=== PATIENT | female | born 1960 | race African-American/Black ===

== ENCOUNTER 2016-06-01 10:49 | Emergency (ER) | payer OTHER ==
[~2016-06-01] VITALS: Wt 112.0 kg
[~2016-06-01 10:49] MED LIST: ALBU8.5H3 INH; BENA1TAB13 PO; HYD25 PO; METF1000 PO
[2016-06-01] MEDS ORDERED: ALBUTEROL 0.5% (NEB) 2.5 MG/0.5 ML AMP NEB STA (11:55)
[2016-06-01] MEDS ORDERED: IPRATROPIUM (NEB) 0.5 MG/2.5 ML AMP NEB STA (11:55)
[2016-06-01] MEDS ORDERED: ALBU2.5V3 NEB (12:11)
[2016-06-01] MEDS ORDERED: PROM25TA14 PO (12:11)
[2016-06-01] MEDS ORDERED: ALBU18HF INHALATION (12:11)
--- NOTE | 2016-06-01 12:38 | RADRPT ---
PROCEDURE: XR Chest. CLINICAL INDICATION: Cough; asthma. TECHNIQUE: Single frontal view of the chest was obtained COMPARISON: Chest x-ray 09/04/2013. FINDINGS: The cardiomediastinal silhouette, pulmonary vasculature and filomena are unremarkable. The lungs are cl ear. There are degenerative osteophytes in the thoracic spine. The soft tissues are normal. No berger ges noted compared to the prior study. IMPRESSION: 1. Spondylosis of the thoracic spine with no evidence of active cardiopulmonary disease. routine no acute infiltrate is identified. RPTAT:AAJJ Physician Carlene Date Time Electronically viewed and signed by Branden Leung Physician on 06/01/2016 12:38 GURWINDER/
--- NOTE | 2016-06-01 12:47 | ERD ---
ER Documentation Chief Complaint Date/Time DATE: 06/01/16 TIME: 12:44 Chief Complaint cough and wheezing for 3 days no fevers. noted. HPI This is a 55-year-old female with past medical history of hypertension diabetes type 2 presenting to the emergency department with a past medical history of asthma complaining of coughing and wheezing for the past 3 days. Patient denies any fevers but she admits to having body aches. Patient denies any chest pain. Patient states that she is out of her inhalers, she usually uses pro-air and she also ran out of her albuterol liquid, patient is requesting more. ROS All systems reviewed and are negative except as per history of present illness. Medications Home Meds Active Scripts Albuterol Sulfate* (Ventolin HFA*) 18 Gm Hfa.aer.ad, 2 PUFF INHALATION Q4H, #1 INHALER Prov:BRUNO BANEGAS PA-C 06/01/16 Albuterol Sulfate* (Albuterol Sulfate* Neb) 0.083%-3 Ml Neb, 2.5 MG NEB Q4H, # 30 VIAL Prov:BRUNO ABNEGAS PA-C 06/01/16 Promethazine Hcl* (Phenergan*) 25 Mg Tablet, 25 MG PO Q6 Y for COUGH, #10 TAB Prov:BRUNO BANEGAS PA-C 06/01/16 Hydrochlorothiazide* (Hydrochlorothiazide*) 25 Mg Tab, 25 MG PO DAILY, #30 TAB Prov:SELENE CAVAZOS 04/16/16 Reported Medications Albuterol Sulfate* (Proair HFA*) 8.5 Gm Hfa.aer.ad, 2 PUFF INH Q6H Y for WHEEZING AND SOB, #1 INHALER 04/16/16 Metformin Hcl* (Metformin Hcl*) 1,000 Mg Tablet, 1000 MG PO WITH BREAKFAST DINNE , #30 TAB 04/16/16 Benazepril-Hydrochlorothiazide (Benazepril-Hydrochlorothiazide) 20-12.5 Mg Tablet, 1 TAB PO DAILY, #30 TAB 04/16/16 Allergies Allergies: Coded Allergies: No Known Drug Allergy (Verified Allergy, Mild, 04/16/16) PMhx/Soc History of Surgery: Yes (CHOLECYSTECTOMY) Anesthesia Reaction: No Hx Neurological Disorder: No Hx Respiratory Disorders: Yes (ASTHMA) Hx Cardiac Disorders: Yes (htn) Hx Psychiatric Problems: No Hx Miscellaneous Medical Probl: No Hx Alcohol Use: No Hx Substance Use: No Hx Tobacco Use: No Physical Exam Vitals Vital Signs Date Time Temp Pulse Resp B/P Pulse Ox O2 Delivery O2 Flow Rate FiO2 06/01/16 12:34 98 24 95 21 06/01/16 10:55 98.7 98 24 130/85 95 Physical Exam GENERAL: well-developed/well-nourished, in no apparent distress, non-toxic appearing HEAD: NC/AT, no swelling noted in frontal or maxillary areas EARS: bilateral tympanic membrane is intact without erythema or effusion NARES:congested THROAT: oropharynx e non-erythematous EYES: Conjunctiva normal NECK: Supple, no lymphadenopathy PULM: CTA bilaterally, no rales, rhonchi, or wheezing heard CV: Normal S1S2, RRR, good capillary refill GI: Soft, non-distended, normal bowel sounds, non-tender BACK: No midline tenderness, no masses EXT No clubbing, cyanosis, or edema NEURO: Alert and Orientated SKIN: Intact, normal turgor PSYCH: Normal mood and mentation Results 24 hrs Current Medications Medications (Trade) Dose Ordered Sig/Latasha Route PRN Reason Start Time Stop Time Status Last Admin Dose Admin Albuterol (Proventil 0.5% (Neb)) 5 mg ONCE STAT NEB 06/01/16 11:55 06/01/16 11:57 DC 06/01/16 12:33 Ipratropium [place] (Atrovent 0.02% (Neb)) 1.5 mg ONCE STAT NEB 06/01/16 11:55 06/01/16 11:57 DC 06/01/16 12:33 Procedures/MDM This is a 55-year-old female presenting to the emergency room complaining of nasal congestion, cough, shortness of breath and wheezing for the past 3 days most likely due to a viral upper respiratory infection. On examination patient was not wheezing, she was breathing well on room air. There is no evidence of respiratory distress or stridor. However a breathing treatment was done for comfort. RT was consulted and patient was given a 5 mg albuterol and Atrovent treatment. Chest x-ray done in the ED and was unremarkable for infiltrates, pneumothorax or pleural effusion. I will low suspicion for pneumonia. Prescription for albuterol, promethazine and ibuprofen has been provided. Discussed to follow-up with her primary care physician. Discussed return to the ER for any worsening signs or symptoms. She understands and agrees with this plan Departure Diagnosis: Primary Impression: Cough Condition: Stable Patient Instructions: Uri, Viral W/ Wheezing (Adult), Uri, Viral, No Abx (Adult ) Referrals: DOCTOR,NOT ON STAFF (PCP) Your Doctor [facility] YOU HAVE RECEIVED A MEDICAL SCREENING EXAM AND THE RESULTS INDICATE THAT YOU DO NOT HAVE A CONDITION THAT REQUIRES URGENT TREATMENT IN THE EMERGENCY DEPARTMENT. FURTHER EVALUATION AND TREATMENT OF YOUR CONDITION CAN WAIT UNTIL YOU ARE SEEN IN YOUR DOCTORS OFFICE WITHIN THE NEXT 1-2 DAYS. IT IS YOUR RESPONSIBILITY TO MAKE AN APPOINTMENT FOR FOLOW-UP CARE. IF YOU HAVE A PRIMARY DOCTOR --you should call your primary doctor and schedule an appointment IF YOU DO NOT HAVE A PRIMARY DOCTOR YOU CAN CALL OUR PHYSICIAN REFERRAL HOTLINE AT IF YOU CAN NOT AFFORD TO SEE A PHYSICIAN YOU CAN CHOSE FROM THE FOLLOWING [facility] [address] [facility] [address] [facility] [address] [facility] [facility] [address] [facility] [address] [facility]. [facility]. [address] [facility] URGENT CARE/SPECIALTIES Additional Instructions: FOLLOW UP WITH YOUR PRIMARY CARE PHYSICIAN TOMORROW.Return to this facility if you are not improving as expected. Take all medicines as directed. You have been given a medicine which may cause drowsiness.DO NOT DRIVE OR OPERATE DANGEROUS MACHINERY while taking this medicine! Return to this facility if you are not improving as expected. BRUNO BANEGAS PA-C Jun 01, 2016 12:47
[2016-06-01 13:25] VITALS: BP 125/75; PULSE 75; RESP 19; TEMP 98.5
== END 2016-06-01 13:26 | disposition home or self-care (01) ==
LOC: FTE 10:49
DX: R05 Cough (principal); I10 Essential (primary) hypertension; E11.9 Type 2 diabetes mellitus without complications; J45.901 Unspecified asthma with (acute) exacerbation; Z79.84 Long term (current) use of oral hypoglycemic drugs
CPT/HCPCS: 71010; 94644; Z7502; Z7610

== ENCOUNTER 2016-06-04 08:29 | Emergency (ER) | payer OTHER ==
[~2016-06-04] VITALS: Ht 170.2 cm; Wt 110.0 kg
[~2016-06-04 08:29] MED LIST changes: +ALBU18HF INHALATION; +ALBU2.5V3 NEB; +PROM25TA14 PO
[2016-06-04 08:31] VITALS: Ht 170.2 cm; Wt 110.0 kg
[2016-06-04] MEDS ORDERED: PRED20TA PO (09:08)
[2016-06-04] MEDS ORDERED: AZIT250T94 PO (09:08)
--- NOTE | 2016-06-04 09:10 | ERD ---
ER Documentation Chief Complaint Date/Time DATE: 06/04/16 TIME: 09:09 Chief Complaint Complains of SOB Hx of Asthma HPI This 55-year-old female presents with cough for last few days. She has a history of asthma. She was seen here a few days ago and prescribed Ventolin. She is returning because she has productive green mucus. She states that she does not have significant wheezing, fevers, chest pain, shortness of breath. ROS All systems reviewed and are negative except as per history of present illness. Medications Home Meds Active Scripts Azithromycin* (Zithromax*) 250 Mg Tablet, 250 MG PO .ZPACK DIRECTED, #6 TAB TAKE 500 MG (2 TABS) THE FIRST DAY THEN 250 MG (1 TAB) DAYS 2-5 Prov:NICHOLAS HECK MD 06/04/16 Prednisone* (Prednisone*) 20 Mg Tab, 40 MG PO DAILY for 4 Days, TAB Start June 05, 2016 Prov:NICHOLAS HECK MD 06/04/16 Albuterol Sulfate* (Ventolin HFA*) 18 Gm Hfa.aer.ad, 2 PUFF INHALATION Q4H, #1 INHALER Prov:BRUNO BANEGAS PA-C 06/01/16 Albuterol Sulfate* (Albuterol Sulfate* Neb) 0.083%-3 Ml Neb, 2.5 MG NEB Q4H, # 30 VIAL Prov:BRUNO BANEGAS PA-C 06/01/16 Promethazine Hcl* (Phenergan*) 25 Mg Tablet, 25 MG PO Q6 Y for COUGH, #10 TAB Prov:BRUNO BANEGAS PA-C 06/01/16 Hydrochlorothiazide* (Hydrochlorothiazide*) 25 Mg Tab, 25 MG PO DAILY, #30 TAB Prov:SELENE CAVAZOS 04/16/16 Reported Medications Albuterol Sulfate* (Proair HFA*) 8.5 Gm Hfa.aer.ad, 2 PUFF INH Q6H Y for WHEEZING AND SOB, #1 INHALER 04/16/16 Metformin Hcl* (Metformin Hcl*) 1,000 Mg Tablet, 1000 MG PO WITH BREAKFAST DINNE , #30 TAB 04/16/16 Benazepril-Hydrochlorothiazide (Benazepril-Hydrochlorothiazide) 20-12.5 Mg Tablet, 1 TAB PO DAILY, #30 TAB 04/16/16 Allergies Allergies: Coded Allergies: No Known Drug Allergy (Verified Allergy, Mild, 04/16/16) PMhx/Soc History of Surgery: Yes (CHOLECYSTECTOMY) Anesthesia Reaction: No Hx Neurological Disorder: No Hx Respiratory Disorders: Yes (ASTHMA) Hx Cardiac Disorders: Yes (htn) Hx Psychiatric Problems: No Hx Miscellaneous Medical Probl: Yes (dm) Hx Alcohol Use: No Hx Substance Use: No Hx Tobacco Use: No Physical Exam Vitals Vital Signs Date Time Temp Pulse Resp B/P Pulse Ox O2 Delivery O2 Flow Rate FiO2 06/04/16 08:31 98.0 99 20 164/96 95 Physical Exam Const: [] Alert, [id number] per Head: Atraumatic Eyes: Normal Conjunctiva ENT: Normal External Ears, Nose and Mouth. Neck: Full range of motion..~ No meningismus. Resp: Clear to auscultation bilaterally. Slight wheezy cough without wheeze at rest and no rales or retractions appreciated Cardio: Regular rate and rhythm, no murmurs Abd: Soft, non tender, non distended. Normal bowel sounds Skin: No petechiae or rashes Back: No midline or flank tenderness Ext: No cyanosis, or edema Neur: Awake and alert Psych: Normal Mood and Affect Results 24 hrs Current Medications Medications (Trade) Dose Ordered Sig/Latasha Route PRN Reason Start Time Stop Time Status Last Admin Dose Admin Prednisone (Prednisone) 40 mg ONCE ONCE PO 06/04/16 09:30 06/04/16 09:31 Procedures/MDM Patient presents with productive cough in the setting of asthma. There is no significant wheezing currently. She had normal x-ray on her previous visit. No fevers or hypoxemia. She will be treated with a short course of prednisone and Zithromax and instructions to continue her inhaler. The patient was stable with no new complaints during the ER course. Clinically, there is no current evidence to suggest meningitis, sepsis, acute abdomen, pneumonia, acute coronary syndrome, pulmonary embolism, or any other emergent condition appearing to require further evaluation or hospitalization. The patient should certainly return for any new or worsening symptoms per the aftercare instructions. They should otherwise follow-up with her primary care doctor for reevaluation this week. Departure Diagnosis: Primary Impression: Bronchitis Additional Impression: Asthma Asthma severity: unspecified severity Asthma complication type: uncomplicated Qualified Code: J45.909 - Uncomplicated asthma, unspecified asthma severity Condition: Stable Patient Instructions: Bronchitis With Wheezing (Adult) Additional Instructions: Recheck for new or worsening symptoms with primary care doctor. NICHOLAS HECK MD Jun 04, 2016 09:10
[2016-06-04] MEDS ORDERED: predniSONE 20 MG TAB PO ONE (09:30)
== END 2016-06-04 09:15 | disposition home or self-care (01) ==
LOC: FTE 08:29
DX: J20.9 Acute bronchitis, unspecified (principal); J45.901 Unspecified asthma with (acute) exacerbation; I10 Essential (primary) hypertension; E11.9 Type 2 diabetes mellitus without complications; Z79.84 Long term (current) use of oral hypoglycemic drugs
CPT/HCPCS: 99284; J7512

== ENCOUNTER 2016-06-07 16:17 | Emergency (ER) | payer OTHER ==
[~2016-06-07] VITALS: Wt 110.0 kg
[~2016-06-07 16:17] MED LIST changes: +AZIT250T94 PO; +PRED20TA PO
[2016-06-07] MEDS ORDERED: DEXAMETHASONE 10 MG/ML 1 ML INJ IM STA (17:24)
[2016-06-07] MEDS ORDERED: LEVALBUTEROL (NEB) 1.25 MG/0.5 ML AMP INH STA (17:28)
[2016-06-07] MEDS ORDERED: IPRATROPIUM (NEB) 0.5 MG/2.5 ML AMP NEB STA (17:28)
[2016-06-07 18:21] VITALS: BP 169/96; PULSE 98; RESP 18; TEMP 98.2
--- NOTE | 2016-06-07 18:38 | ERD ---
ER Documentation Chief Complaint Date/Time DATE: 06/07/16 TIME: 18:24 Chief Complaint INTERMITTENT WHEEZING AND ASTHMA WORSENING FOR FEW WKS. NO DISTRESS HPI 55-year-old female who presents to the emergency department complaining of shortness of breath. Patient has been seen here twice in the past several days for similar complaints. Patient states that she has a history of asthma and the [place] [facility] she gets when she has an asthma exacerbation. States she has taken the medication she was prescribed. States shortness of breath and intermittent and worse at night. Patient does have a history of hypertension as well. She states that she just saw her doctor 1 week ago and had a good physical. Denies any fevers or chills, calf pain. Denies cigarette smoke. ROS All systems reviewed and are negative except as per history of present illness. Medications Home Meds Active Scripts Azithromycin* (Zithromax*) 250 Mg Tablet, 250 MG PO .ZPACK DIRECTED, #6 TAB TAKE 500 MG (2 TABS) THE FIRST DAY THEN 250 MG (1 TAB) DAYS 2-5 Prov:NICHOLAS HECK MD 06/04/16 Prednisone* (Prednisone*) 20 Mg Tab, 40 MG PO DAILY for 4 Days, TAB Start June 05, 2016 Prov:NICHOLAS HECK MD 06/04/16 Albuterol Sulfate* (Ventolin HFA*) 18 Gm Hfa.aer.ad, 2 PUFF INHALATION Q4H, #1 INHALER Prov:BRUNO BANEGAS PA-C 06/01/16 Albuterol Sulfate* (Albuterol Sulfate* Neb) 0.083%-3 Ml Neb, 2.5 MG NEB Q4H, # 30 VIAL Prov:BRUNO BANEGAS PA-C 06/01/16 Promethazine Hcl* (Phenergan*) 25 Mg Tablet, 25 MG PO Q6 Y for COUGH, #10 TAB Prov:BRUNO BANEGAS PA-C 06/01/16 Hydrochlorothiazide* (Hydrochlorothiazide*) 25 Mg Tab, 25 MG PO DAILY, #30 TAB Prov:SELENE CAVAZOS 04/16/16 Reported Medications Albuterol Sulfate* (Proair HFA*) 8.5 Gm Hfa.aer.ad, 2 PUFF INH Q6H Y for WHEEZING AND SOB, #1 INHALER 04/16/16 Metformin Hcl* (Metformin Hcl*) 1,000 Mg Tablet, 1000 MG PO WITH BREAKFAST DINNE , #30 TAB 04/16/16 Benazepril-Hydrochlorothiazide (Benazepril-Hydrochlorothiazide) 20-12.5 Mg Tablet, 1 TAB PO DAILY, #30 TAB 04/16/16 Allergies Allergies: Coded Allergies: No Known Drug Allergy (Verified Allergy, Mild, 04/16/16) PMhx/Soc History of Surgery: Yes (CHOLECYSTECTOMY) Anesthesia Reaction: No Hx Neurological Disorder: No Hx Respiratory Disorders: Yes (ASTHMA) Hx Cardiac Disorders: Yes (htn) Hx Psychiatric Problems: No Hx Miscellaneous Medical Probl: Yes (dm) Hx Alcohol Use: No Hx Substance Use: No Hx Tobacco Use: No Smoking Status: Never smoker Physical Exam Vitals Vital Signs Date Time Temp Pulse Resp B/P Pulse Ox O2 Delivery O2 Flow Rate FiO2 06/07/16 18:21 98.2 98 18 169/96 98 Room Air 06/07/16 17:50 97 22 95 21 06/07/16 16:20 98.6 102 22 171/95 99 Physical Exam Const: Talkative, no acute distress Head: Atraumatic Eyes: Normal Conjunctiva ENT: Normal External Ears, Nose and Mouth. Neck: Full range of motion..~ No meningismus. Resp: Clear to auscultation bilaterally. No absent breath sounds. No wheezing. Cardio: Regular rate and rhythm, no murmurs Abd: Soft, non tender, non distended. Normal bowel sounds Skin: No petechiae or rashes Ext: No cyanosis, or edema Neur: Awake and alert Psych: Normal Mood and Affect Results 24 hrs Current Medications Medications (Trade) Dose Ordered Sig/Latasha Route PRN Reason Start Time Stop Time Status Last Admin Dose Admin Dexamethasone (Decadron) 10 mg ONCE STAT IM 06/07/16 17:24 06/07/16 17:26 DC 06/07/16 17:29 Ipratropium [place] (Atrovent 0.02% (Neb)) 0.5 mg ONCE STAT NEB 06/07/16 17:28 06/07/16 17:30 DC 06/07/16 17:49 Levalbuterol (Xopenex Neb) 1.25 mg ONCE STAT INH 06/07/16 17:28 06/07/16 17:30 DC 06/07/16 17:49 Procedures/MDM This is a 55-year-old female who presents to the emergency department today complaining of intermittent shortness of breath. Patient was seen here on June 01 and was given Phenergan for cough as well as albuterol for her nebulizer machine and Ventolin. Patient then returned on June 04 and was given azithromycin and prednisone at that time. Her chest x-ray was negative at that time for any acute infiltrate. He'll be patient requires a repeat chest x-ray today. I have low suspicion for pneumonia PE, abscess, pneumothorax. Patient's oxygen saturation is 99%. She is slightly tachycardic however she is afebrile. She denies any cigarette smoke. Denies any calf pain or cough at this time. Low suspicion for PE. She states that she walks up and down stairs all day she has no recent or prolonged travel. Patient's symptoms at this time most consistent with shortness of breath possibly secondary to asthma exacerbation. Patient was requesting a shot here of steroids stating that helps her feel better last time. Patient was given 10 mg IM of Decadron. She was also given a breathing treatment and patient was stating that she was feeling much better with wanting to go home. She was not sent home on any more medications. She was instructed to continue taking her asthma medications as prescribed. Patient was also instructed to follow-up with her primary care doctor again tomorrow for possible referral to pulmonology. Patient understood At this time the patient is stable for discharge and outpatient management. Patient should follow up with their PCP in the next 1-2 days. They may return to the emergency department sooner for any persistent or worsening of symptoms. Patient understood and agreed with the plan. Departure Diagnosis: Primary Impression: SOB (shortness of breath) Condition: Fair Patient Instructions: Understanding Asthma Triggers Referrals: your PCP Additional Instructions: Call your primary care doctor TOMORROW for an appointment during the next 1-2 days.See the doctor sooner or return here if your condition worsens before your appointment time. Make appointment for possible referral to pulmonology Use your regular inhalers. BUNNY RICO PA-C Jun 07, 2016 18:34
== END 2016-06-07 18:22 | disposition home or self-care (01) ==
LOC: FTE 16:17
DX: J45.901 Unspecified asthma with (acute) exacerbation (principal); I10 Essential (primary) hypertension; E11.9 Type 2 diabetes mellitus without complications; Z79.84 Long term (current) use of oral hypoglycemic drugs
CPT/HCPCS: 94664; J1100; Z7610; 96372

== ENCOUNTER 2016-07-12 05:10 | Emergency (ER) | payer OTHER ==
[~2016-07-12] VITALS: Ht 172.7 cm; Wt 110.0 kg
[2016-07-12 05:18] VITALS: Ht 172.7 cm; Wt 110.0 kg
[2016-07-12] MEDS ORDERED: CEPH-443 PO (07:11)
[2016-07-12] MEDS ORDERED: IBUP-1542 PO (07:11)
[2016-07-12] MEDS ORDERED: BACTDS PO (07:11)
--- NOTE | 2016-07-12 07:11 | ERD ---
ER Documentation Chief Complaint Date/Time DATE: 07/12/16 Chief Complaint Perineal cyst/abscess HPI The patient is a 55-year-old female with a history of hypertension and diabetes mellitus who presents to the Emergency Department with complaint of a "knot" in the right perineal area. The patient notes that last night she felt a small amount of pressure to the right perineal area while standing. Upon waking up this morning, the pressure remained present, and when she palpated, she noted presence of a "small knot." She notes no overlying skin changes, and that the "knot" is only notable upon palpation and not visualization. She denies any overlying erythema, warmth, drainage or bleeding. Denies history of similar symptoms. She rates her current pain as 5/10, though notes that it can increase up to 10/10 with palpation. Denies fevers, chills, nausea, vomiting, dysuria, hematuria or flank pain. ROS All systems reviewed and are negative except as per history of present illness. Medications Home Meds Active Scripts Hydrocodone/Acetaminophen ([place] 5-325 Tablet) 1 Each Tablet, 1 EACH PO Q6, #10 TAB Prov:ESTELLA WESTFALL PA-C 07/12/16 Ibuprofen* (Motrin*) 600 Mg Tab, 600 MG PO Q6, #20 TAB Prov:ESTELLA WESTFALL PA-C 07/12/16 Cephalexin* (Keflex*) 500 Mg Capsule, 500 MG PO QID for 7 Days, CAP Prov:ESTELLA WESTFALL PA-C 07/12/16 Sulfamethoxazole-Trimethoprim* (Bactrim* DS) 800-160 Mg Tab, 1 TAB PO BID for 7 Days, TAB Prov:ESTELLA WESTFALL PA-C 07/12/16 Azithromycin* (Zithromax*) 250 Mg Tablet, 250 MG PO .ZPACK DIRECTED, #6 TAB TAKE 500 MG (2 TABS) THE FIRST DAY THEN 250 MG (1 TAB) DAYS 2-5 Prov:NICHOLAS HECK MD 06/04/16 Prednisone* (Prednisone*) 20 Mg Tab, 40 MG PO DAILY for 4 Days, TAB Start June 05, 2016 Prov:NICHOLAS HECK MD 06/04/16 Albuterol Sulfate* (Ventolin HFA*) 18 Gm Hfa.aer.ad, 2 PUFF INHALATION Q4H, #1 INHALER Prov:BRUNO BANEGAS PA-C 06/01/16 Albuterol Sulfate* (Albuterol Sulfate* Neb) 0.083%-3 Ml Neb, 2.5 MG NEB Q4H, # 30 VIAL Prov:BRUNO BANEGAS PA-C 06/01/16 Promethazine Hcl* (Phenergan*) 25 Mg Tablet, 25 MG PO Q6 Y for COUGH, #10 TAB Prov:BRUNO BANEGAS PA-C 06/01/16 Hydrochlorothiazide* (Hydrochlorothiazide*) 25 Mg Tab, 25 MG PO DAILY, #30 TAB Prov:SELENE CAVAZOS 04/16/16 Reported Medications Albuterol Sulfate* (Proair HFA*) 8.5 Gm Hfa.aer.ad, 2 PUFF INH Q6H Y for WHEEZING AND SOB, #1 INHALER 04/16/16 Metformin Hcl* (Metformin Hcl*) 1,000 Mg Tablet, 1000 MG PO WITH BREAKFAST DINNE , #30 TAB 04/16/16 Benazepril-Hydrochlorothiazide (Benazepril-Hydrochlorothiazide) 20-12.5 Mg Tablet, 1 TAB PO DAILY, #30 TAB 04/16/16 Allergies Allergies: Coded Allergies: No Known Drug Allergy (Verified Allergy, Mild, 07/12/16) PMhx/Soc History of Surgery: Yes (CHOLECYSTECTOMY) Anesthesia Reaction: No Hx Neurological Disorder: No Hx Respiratory Disorders: Yes (ASTHMA) Hx Cardiac Disorders: Yes (htn) Hx Psychiatric Problems: No Hx Miscellaneous Medical Probl: Yes (dm) Hx Alcohol Use: Yes (ocassional ) Hx Substance Use: No Hx Tobacco Use: No Smoking Status: Never smoker Physical Exam Vitals Vital Signs Date Time Temp Pulse Resp B/P Pulse Ox O2 Delivery O2 Flow Rate FiO2 07/12/16 05:18 97.4 96 20 163/108 97 Physical Exam GENERAL: Well-developed, well-nourished, in no acute distress HEENT: Head is normocephalic, atraumatic. No scleral pallor or icterus. Conjunctiva pink. Moist mucous membranes. NECK: Supple. RESPIRATORY: Lungs are clear to auscultation bilaterally. Equal breath sounds. Normal expiratory effort. CARDIOVASCULAR: Regular rate and rhythm. S1 and S2 normal. GASTROINTESTINAL: Abdomen is soft, nontender, and nondistended. No guarding, no rebound tenderness. Normal bowel sounds. FLANK: No CVA tenderness. GENITOURINARY: Normal external genitalia. No abnormal discharge, no bleeding. Small, indurated, 0.8 cm x 0.8 cm round nodule/abscess to the right perineal area. No overlying skin changes. No swelling. No erythema. No warmth. No fluctuance. EXTREMITIES: No clubbing, cyanosis, or edema. Normal skin perfusion. Moving all extremities. Muscle tone is normal. No focal swelling or erythema. Distal pulses are palpable, 2+ bilaterally. Capillary refill is less than 2 seconds. NEUROLOGIC: The patient is alert, awake, and oriented x 3. No focal neurologic deficits. INTEGUMENT: Skin is clean, dry and intact. PSYCHIATRIC: Appropriate; Cooperative. Procedures/MDM This is a 55-year-old female patient presenting to the Emergency Department with a right-sided perineal abscess that she first noted last night. On physical examination, a small indurated, round area of 0.8 cm x 0.8 cm was noted to the right perineal region. No fluctuance, warmth, drainage, overlying erythema was noted. Given no fluctuance, and the patient's current presentation , I do not believe that the abscess is ready for I&D. At this time the patient in stable condition and therefore can be discharged home with prescriptions for Bactrim DS, Keflex, and [place], and given strict return precautions for signs of infection, uncontrollable pain, or any form of worsening or deteriorating condition. The patient is advised to complete all antibiotics as directed. She is advised to follow up within 1-2 days for reevaluation and further management , or to return to the ER sooner for any new or worsening symptoms. I shared my medical decision making and plan with the patient at length and in great detail and the patient verbally understands and agrees with the plan for further observation and care as an outpatient. At the time of discharge all questions were answered. Departure Diagnosis: Primary Impression: Perineal abscess Condition: Stable Patient Instructions: Abscess, Antiobiotic Treatment Only Additional Instructions: Call your primary care doctor TOMORROW for an appointment during the next 2-3 days for reevaluation and further management. See the doctor sooner or return here if your condition worsens before your appointment time. ESTELLA WESTFALL PA-C Jul 12, 2016 07:10
[2016-07-12] MEDS ORDERED: HYDR-906 PO (07:12)
== END 2016-07-12 07:18 | disposition home or self-care (01) ==
LOC: FTE 05:10
DX: L02.215 Cutaneous abscess of perineum (principal); I10 Essential (primary) hypertension; E11.9 Type 2 diabetes mellitus without complications; J45.909 Unspecified asthma, uncomplicated; Z79.84 Long term (current) use of oral hypoglycemic drugs
CPT/HCPCS: 99284

== ENCOUNTER 2016-08-03 12:16 | Emergency (ER) | payer OTHER ==
[~2016-08-03] VITALS: Ht 170.2 cm; Wt 108.5 kg
[~2016-08-03 12:16] MED LIST changes: +BACTDS PO; +CEPH-443 PO; +HYDR-906 PO; +IBUP-1542 PO
[2016-08-03 12:27] VITALS: Ht 170.2 cm; Wt 108.5 kg
[2016-08-03] MEDS ORDERED: HYDROCODONE/APAP (5/325) TAB PO ONE (14:30)
[2016-08-03] MEDS ORDERED: CYCL-319 PO (15:17)
[2016-08-03] MEDS ORDERED: NAPR-260 PO (15:18)
[2016-08-03] MEDS ORDERED: ELIM TOP (15:18)
[2016-08-03 15:48] VITALS: BP 162/89; PULSE 77; RESP 18; TEMP 98.5
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
--- NOTE | 2016-08-03 16:00 | RADRPT ---
PROCEDURE: Left ankle series. CLINICAL INDICATION: Left ankle pain after trauma TECHNIQUE: Three views of the left ankle were performed. COMPARISON: None. FINDINGS: The patient is status post ORIF of distal fibular fracture with intact plate and screws. There is g rossly normal mineralization and alignment of the bones of the left ankle.. No acute fracture or di slocation is seen. There are mild degenerative changes of the left ankle joint. A small plantar he el spur is noted. No joint effusion is identified. The soft tissues are within normal limits. IMPRESSION: 1. Status post ORIF of distal fibular fracture. 2. No evidence of acute fracture or dislocation. 3. Degenerative changes of the left ankle. RPTAT: KK .Xu Jackson MD, MD Date Time Electronically viewed and signed by .Xu Jackson MD, MD on 08/03/2016 15:59 .B/
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
== END 2016-08-03 16:05 | disposition home or self-care (01) ==
LOC: FTE 12:16
DX: S39.92XA Unspecified injury of lower back, initial encounter (principal); S99.912A Unspecified injury of left ankle, initial encounter; J45.909 Unspecified asthma, uncomplicated; I10 Essential (primary) hypertension; E11.9 Type 2 diabetes mellitus without complications; V49.40XA Driver injured in collision with unspecified motor vehicles in traffic accident, initial encounter; Z20.7 Contact with and (suspected) exposure to pediculosis, acariasis and other infestations; Z79.84 Long term (current) use of oral hypoglycemic drugs
CPT/HCPCS: 72100; 73610; 73630; Z7502; Z7610

== ENCOUNTER 2017-04-08 21:34 | Emergency (ER) | payer OTHER ==
[~2017-04-08] VITALS: Ht 172.7 cm; Wt 111.4 kg
[~2017-04-08 21:34] MED LIST changes: +CYCL-319 PO; +ELIM TOP; -HYD25 PO; +HYDR25TA6 PO; +NAPR-260 PO
[2017-04-08 21:46] VITALS: Ht 172.7 cm; Wt 111.4 kg
[2017-04-09] MEDS ORDERED: AMOX500C2 PO (01:19)
--- NOTE | 2017-04-09 01:19 | ERD ---
ER Documentation Chief Complaint Chief Complaint right ear pain x 1 week on and off HPI 56-year-old female presents emergency department for right ear pain for about a week. Stated pain was on and off. Denies headache, head injury, that this is the worst headache of her life, neck stiffness, throat pain, neck pain, difficulty swallowing, shoulder pain, chest pain, back pain, abdominal pain, difficulty breathing when lying flat, abdominal pain, back pain, nausea, vomiting, constipation, diarrhea, loss of bowel bladder control, trauma, injury , falls, or possibility being , recent travel, recent exposure to any illness, recent long travel, recent antibiotic use in the last 3 months, difficulty walking. Past medical history of diabetes and hypertension. A1. ROS All systems reviewed and are negative except as per history of present illness. Medications Home Meds Active Scripts Tramadol HCl (Tramadol HCl) 50 Mg Tablet, 50 MG PO Q4 Y for PAIN, #10 TAB Prov:PASILASTAS DUARTE F 04/09/17 Ibuprofen* (Motrin*) 800 Mg Tab, 800 MG PO Q8 Y for PAIN AND OR ELEVATED TEMP, # 20 TAB Prov:PASILASTAS DUARTE F 04/09/17 Amoxicillin* (Amoxicillin*) 500 Mg Cap, 500 MG PO TID for 7 Days, CAP Prov:STAS QUINTERO F 04/09/17 Permethrin* (Elimite*) 5% Cr, 1 APPLIC TOP ONCE for 7 Days, TUB Prov:JEANINE WHEELER PA-C 08/03/16 Naproxen* (Naprosyn*) 500 Mg Tablet, 500 MG PO BID Y for PAIN AND/OR INFLAMMATION, #30 TAB Prov:JEANINE WHEELER PA-C 08/03/16 Cyclobenzaprine Hcl* (Cyclobenzaprine Hcl*) 10 Mg Tablet, 10 MG PO TID, #15 TAB Prov:JEANINE WHEELER PA-C 08/03/16 Hydrocodone/Acetaminophen ([place] 5-325 Tablet) 1 Each Tablet, 1 EACH PO Q6, #10 TAB Prov:ESTELLA WESTFALL PA-C 07/12/16 Ibuprofen* (Motrin*) 600 Mg Tab, 600 MG PO Q6, #20 TAB Prov:ESTELLA WESTFALL PA-C 07/12/16 Cephalexin* (Keflex*) 500 Mg Capsule, 500 MG PO QID for 7 Days, CAP Prov:ESTELLA WESTFALL PA-C 07/12/16 Sulfamethoxazole-Trimethoprim* (Bactrim* DS) 800-160 Mg Tab, 1 TAB PO BID for 7 Days, TAB Prov:ESTELLA WESTFALL PA-C 07/12/16 Azithromycin* (Zithromax*) 250 Mg Tablet, 250 MG PO .DORITA DIRECTED, #6 TAB TAKE 500 MG (2 TABS) THE FIRST DAY THEN 250 MG (1 TAB) DAYS 2-5 Prov:NICHOLAS HECK MD 06/04/16 Prednisone* (Prednisone*) 20 Mg Tab, 40 MG PO DAILY for 4 Days, TAB Start June 05, 2016 Prov:NICHOLAS HECK MD 06/04/16 Albuterol Sulfate* (Ventolin HFA*) 18 Gm Hfa.aer.ad, 2 PUFF INHALATION Q4H, #1 INHALER Prov:BRUNO BANEGAS PA-C 06/01/16 Albuterol Sulfate* (Albuterol Sulfate* Neb) 0.083%-3 Ml Neb, 2.5 MG NEB Q4H, # 30 VIAL Prov:BRUNO BANEGAS PA-C 06/01/16 Promethazine Hcl* (Phenergan*) 25 Mg Tablet, 25 MG PO Q6 Y for COUGH, #10 TAB Prov:BRUNO BANEGAS PA-C 06/01/16 Hydrochlorothiazide* (Hydrochlorothiazide*) 25 Mg Tab, 25 MG PO DAILY, #30 TAB Prov:SELENE CAVAZOS 04/16/16 Reported Medications Albuterol Sulfate* (Proair HFA*) 8.5 Gm Hfa.aer.ad, 2 PUFF INH Q6H Y for WHEEZING AND SOB, #1 INHALER 04/16/16 Metformin Hcl* (Metformin Hcl*) 1,000 Mg Tablet, 1000 MG PO WITH BREAKFAST DINNE , #30 TAB 04/16/16 Benazepril-Hydrochlorothiazide (Benazepril-Hydrochlorothiazide) 20-12.5 Mg Tablet, 1 TAB PO DAILY, #30 TAB 04/16/16 Allergies Allergies: Coded Allergies: No Known Drug Allergy (Verified Allergy, Mild, 07/12/16) PMhx/Soc History of Surgery: Yes (CHOLECYSTECTOMY) Anesthesia Reaction: No Hx Neurological Disorder: No Hx Respiratory Disorders: Yes (ASTHMA) Hx Cardiac Disorders: Yes (htn) Hx Psychiatric Problems: No Hx Miscellaneous Medical Probl: Yes (dm) Hx Alcohol Use: Yes (ocassional ) Hx Substance Use: No Hx Tobacco Use: No Physical Exam Vitals Vital Signs Date Time Temp Pulse Resp B/P Pulse Ox O2 Delivery O2 Flow Rate FiO2 04/09/17 01:51 97.7 93 20 135/88 97 Room Air 04/08/17 21:46 98.2 101 20 137/80 100 Physical Exam Const: Well-appearing. Not in acute respiratory distress. Head: Atraumatic Eyes: Normal Conjunctiva. No pain in eye movement. PERRLA. Extraocular movement of her eyes within normal limits. ENT: Normal External Ears, Nose and Mouth. Left ear: TM is not erythematous. No bleeding. No discharge. Right ear: TM is erythematous. No bleeding. No discharge. No hearing loss bilaterally. Neck: Full range of motion..~ No meningismus. No neck stiffness. No signs of meningeal irritation. Resp: Clear to auscultation bilaterally Cardio: Regular rate and rhythm, no murmurs Abd: Soft, non tender, non distended. Normal bowel sounds Skin: No petechiae or rashes Back: No midline or flank tenderness Ext: No cyanosis, or edema Neur: Awake and alert Psych: Normal Mood and Affect Results 24 hrs Current Medications Medications (Trade) Dose Ordered Sig/Latasha Route PRN Reason Start Time Stop Time Status Last Admin Dose Admin Acetaminophen/ Hydrocodone Bitart ([place] (5/325)) 1 tab ONCE ONCE PO 04/09/17 01:30 04/09/17 01:31 DC 04/09/17 01:33 Procedures/MDM I have low suspicion for meningitis, peritonsillar abscess, stroke, severe or serious bacterial infection due to patient's appearance, vital signs. Final diagnosis: Right otitis media. Prescription: Amoxicillin. Motrin. Tylenol. Tramadol. Follow-up with PCP in 3-4 days. Come back here in the emergency department for any new symptoms or any worsening of symptoms. All questions and concerns were answered. Patient verbalized understanding and agreed with the plan of care. Hemodynamically stable on discharge. Departure Diagnosis: Primary Impression: Right ear pain Additional Impression: Otitis media Condition: Stable Additional Instructions: Follow-up with PCP in 3-4 days. Come back here in the emergency department for any new symptoms or any worsening of symptoms. All questions and concerns were answered. Patient verbalized understanding and agreed with the plan of care. STAS QUINTERO Apr 09, 2017 01:19
[2017-04-09] MEDS ORDERED: TRAM50TA2 PO (01:20)
[2017-04-09] MEDS ORDERED: IBUP800T25 PO (01:20)
[2017-04-09] MEDS ORDERED: HYDROCODONE/APAP (5/325) TAB PO ONE (01:30)
[2017-04-09 01:51] VITALS: BP 135/88; PULSE 93; RESP 20; TEMP 97.7
== END 2017-04-09 01:50 | disposition home or self-care (01) ==
LOC: FTE 21:34
DX: H66.91 Otitis media, unspecified, right ear (principal); J45.909 Unspecified asthma, uncomplicated; I10 Essential (primary) hypertension; E11.9 Type 2 diabetes mellitus without complications; Z79.84 Long term (current) use of oral hypoglycemic drugs
CPT/HCPCS: Z7502; Z7610; 99284

== ENCOUNTER 2017-06-10 08:48 | Emergency (ER) | END 2017-06-10 12:08 | disposition home or self-care (01) ==